=== PATIENT | male | born 1995 | race Two or more races ===

== ENCOUNTER 2020-12-01 00:15 | Emergency (ER) | payer OTHER ==
[~2020-12-01] VITALS: Ht 172.7 cm; Wt 90.9 kg
[2020-12-01 00:28] VITALS: BP 136/82
== END 2020-12-01 01:00 | disposition left against medical advice (07) ==
LOC: EMS 00:17
DX: N50.89 Other specified disorders of the male genital organs (principal); Z53.21 Procedure and treatment not carried out due to patient leaving prior to being seen by health care provider